=== PATIENT | female | born 1940 | race Hispanic/Latino ===

== ENCOUNTER 2018-12-24 09:48 | Day surgery (SDC) | payer MEDICARE ==
[2018-08-02 10:46] VITALS: BMI 23.7
[2018-12-24] MEDS ORDERED: Propofol 10 mg/ml Inj (20 ML) ONE (12:15)
[2018-12-24] MEDS ORDERED: cefTRIAXone 1 gm 1 GM/100 ML BAG IVPB ONE (12:16)
[2018-12-24] MEDS ORDERED: Iohexol 240 (50 ml) ONE (12:16)
[2018-12-24] MEDS ORDERED: Lidocaine 2% Jelly (Uro-Jet) ONE (12:16)
[2018-12-24] MEDS ORDERED: Lactated Ringer's 1,000 ML IV SCH (13:00)
[2018-12-24 13:12] VITALS: O2SAT 100
[2018-12-24 14:53] VITALS: PULSE 62; TEMP 97.8
[2018-12-24 15:49] VITALS: BP 161/99; RESP 18
--- NOTE | 2018-12-25 04:57 | OP ---
PROCEDURE DATE: 12/24/2018 PREOPERATIVE DIAGNOSIS: Bilateral hydronephrosis. POSTOPERATIVE DIAGNOSIS: Bilateral hydronephrosis. PROCEDURE PERFORMED: Cystoscopy with removal of double-J stents on both sides and re-insertion of double-J stents on both sides. SURGEON: Artie Crump MD DESCRIPTION OF PROCEDURE: The patient was placed on the operating room table in a dorsal lithotomy position. She was given general anesthesia. At this time, I used a #21 cystoscope to gain access into the bladder. I grasped the left double J-stent and brought it out externally. Through that tube, I then inserted a sensor wire to the level of the bladder. Under fluoroscopy, I could see it in good position. At this time, I removed the old J-stent, and I put a new [id number] multilength double-J stent, [employer]. I did the same on the right side. Once both was fluoroscopically in good position, then the patient was taken from the operating room in good condition. Artie Crump MD
--- NOTE | 2018-12-27 16:08 | RAD ---
Date of service: 12/24/2018 PROCEDURE: Intraoperative Fluoroscopy. HISTORY: STENT REMOVAL FINDINGS: Fluoroscopic assistance was provided for stent removal. Please refer to the operative report from R[facility] Carson. Total fluoroscopic time (continuous mode) utilized during the procedure 37.0 seconds. Total exam DLP: 3.60 (mGy).
== END 2018-12-24 14:40 | disposition home or self-care (01) ==
LOC: C.SDS 09:48
PROVIDERS: ATTEND Urology
DX: N13.39 Other hydronephrosis (principal)
CPT/HCPCS: 52332; 82948; 88300; J0696; J2704; J3010